=== PATIENT | female | born 1970 | race Caucasian/White ===

== ENCOUNTER 2016-02-26 09:51 | Emergency (ER) | payer MEDICARE ==
[2015-06-03 02:26] VITALS: BMI 25.1
[~2016-02-26 09:51] MED LIST: AMBIEN10 MG PO; NEURONTIN600 MG PO; PRILOSEC20 MG PO; ROBAXIN-750750 MG PO; XANAX XR 1 MG TA1 MG PO; ZOFRAN4 MG PO
[2016-02-26 11:12] LABS: BASOPHILS 0.2 % (0.0-2.0); HEMATOCRIT 41.7 % (36.0-48.0); IMMATURE GRANULOCYTES 0.8 % (0-5); LYMPHOCYTES 16.1 % (15-50); MCH 25.9 pg (26.0-34.0); MCHC 31.2 g/dL (31.0-37.0); MCV 83.2 fL (80.0-100.0); MONOCYTES 3.2 % (2-11); NEUTROPHILS 78.7 % (40-80); PLATELET COUNT 232 10x3/uL (130-400); RBC 5.01 10x6/uL (4.00-5.40); RDW 17.3 % (11.5-14.5); WBC 15.6 10x3/uL (4.8-10.8)
[2016-02-26 11:27] LABS: ALBUMIN 3.9 g/dL (3.4-5.0); ALKALINE PHOSPHATASE 126 U/L (46-116); ALT (SGPT) 21 U/L (10-68); BILIRUBIN - TOTAL 0.33 mg/dL (0.2-1.3); CALC OSMOLALITY 272 mosm/kg (275-300); CALCIUM 9.3 mg/dL (8.5-10.1); CARBON DIOXIDE 23.1 mmol/L (21.0-32.0); CHLORIDE - SERUM 102 mmol/L (98-107); CREATININE - SERUM 0.8 mg/dL (0.6-1.3); GLUCOSE 76 mg/dL (74-106); POTASSIUM - SERUM 4.1 mmol/L (3.5-5.1); PROTEIN - SERUM 7.7 g/dL (6.4-8.2); SODIUM 138 mmol/L (136-145); UREA NITROGEN 8 mg/dL (7-18); eGFR NON AFRICAN AMERICAN 82 mL/min (90-120)
[2016-02-26 11:31] LABS: TROPONIN-I < 0.017 ng/mL (0.000-0.060)
== END 2016-02-26 13:50 | disposition home or self-care (01) ==
LOC: D.ER 09:51
PROVIDERS: Emergency Medicine
DX: J20.9 Acute bronchitis, unspecified (principal); F41.9 Anxiety disorder, unspecified; F17.200 Nicotine dependence, unspecified, uncomplicated

== ENCOUNTER → 2016-04-19 17:00 | Outpatient (CLI) | payer MEDICARE ==
[2015-06-03 02:26] VITALS: BMI 25.1
== END | disposition home or self-care (01) ==
LOC: D.MAMMO 14:30
DX: Z12.31 Encounter for screening mammogram for malignant neoplasm of breast (principal)

== ENCOUNTER → 2016-06-08 16:50 | Outpatient (CLI) | payer MEDICARE ==
[2015-06-03 02:26] VITALS: BMI 25.1
== END | disposition home or self-care (01) ==
LOC: D.MAMMO 09:30
DX: R92.8 Other abnormal and inconclusive findings on diagnostic imaging of breast (principal)

== ENCOUNTER 2016-11-20 08:59 | Emergency (ER) | payer MEDICARE ==
[2015-06-03 02:26] VITALS: BMI 25.1
== END 2016-11-20 09:58 | disposition home or self-care (01) ==
LOC: D.ER 08:59
DX: M54.16 Radiculopathy, lumbar region (principal); F17.200 Nicotine dependence, unspecified, uncomplicated

== ENCOUNTER 2016-12-07 09:37 | Emergency (ER) | payer MEDICARE ==
[2015-06-03 02:26] VITALS: BMI 25.1
== END 2016-12-07 11:18 | disposition home or self-care (01) ==
LOC: D.ER 09:37
DX: M54.16 Radiculopathy, lumbar region (principal); F17.200 Nicotine dependence, unspecified, uncomplicated

== ENCOUNTER 2016-12-13 13:29 | Inpatient (IN) | payer MEDICARE ==
[2016-12-13 13:54] LABS: BASOPHILS 0.3 % (0-2); EOSINOPHILS 2.9 % (0-7); HEMATOCRIT 43.1 % (36.0-48.0); HEMOGLOBIN 14.1 g/dL (12-16); IMMATURE GRANULOCYTES 0.2 % (0-5); LYMPHOCYTES 28.1 % (15-50); MCH 29.2 pg (26.0-34.0); MCHC 32.7 g/dL (31.0-37.0); MCV 89.2 fL (80.0-100.0); MEAN PLATELET VOLUME 10.4 fL (7.4-10.4); NEUTROPHILS 61.5 % (40-80); PLATELET COUNT 193 10x3/uL (130-400); RBC 4.83 10x6/uL (4.00-5.40); RDW 18.1 % (11.5-14.5)
[2016-12-13 14:07] LABS: ALBUMIN 3.6 g/dL (3.4-5.0); ALKALINE PHOSPHATASE 123 U/L (46-116); ALT (SGPT) 21 U/L (10-68); BILIRUBIN - TOTAL 0.26 mg/dL (0.2-1.3); CALC OSMOLALITY 280 mosm/kg (275-300); CALCIUM 9.1 mg/dL (8.5-10.1); CARBON DIOXIDE 26.8 mmol/L (21.0-32.0); CHLORIDE - SERUM 104 mmol/L (98-107); CREATININE - SERUM 0.6 mg/dL (0.6-1.3); GLUCOSE 81 mg/dL (74-106); PROTEIN - SERUM 7.2 g/dL (6.4-8.2); SODIUM 141 mmol/L (136-145); UREA NITROGEN 15 mg/dL (7-18); eGFR NON AFRICAN AMERICAN > 90 mL/min (90-120)
--- NOTE | 2016-12-13 21:23 | NUR ---
CONSULTED DR WELLER REGARDING DECREASED BLOOD PRESSURE. VERBAL ORDERS GIVEN TO GIVE HESPAN IN PACU AND TO FINISH HESPAN ON THE FLOOR AFTER 200ML. WILL CONTINUE TO MONITOR.
[2016-12-13 21:39] LABS: HEMATOCRIT 36.6 % (36.0-48.0); HEMOGLOBIN 11.7 g/dL (12-16)
[2016-12-13 21:48] VITALS: BP 125/73
--- NOTE | 2016-12-13 21:54 | NUR ---
CONSULTED DR WELLER ABOUT HYPOTENSION. DR WELLER ORDERED STAT HEMOGLOBIN AND HEMATOCRIT.
[2016-12-13 23:37] VITALS: BP 125/73; BMI 25.9
[2016-12-14 04:00] VITALS: BP 92/44
--- NOTE | 2016-12-14 05:40 | OP ---
PATIENT NAME: HANSEL MEJIA MEDICAL RECORD: [id number] :68 LOCATION:[id number] ADMISSION DATE:12/13/16 SURGEON: CAN SORIANO DO DATE OF OPERATION: 12/13/2016 PROCEDURE PERFORMED: Left femur open reduction with intramedullary nailing. PREOPERATIVE DIAGNOSIS: Closed left subtrochanteric femur fracture. POSTOPERATIVE DIAGNOSIS: Closed left subtrochanteric femur fracture. INDICATIONS: Ms. Mejia is a 46-year-old female who tripped and fell down stairs earlier today while taking her dog out to go to the bathroom and sustained a left subtrochanteric femur fracture. She was brought by ambulance to the hospital and the patient was informed of recommended treatment and she was verbally consented for the procedure and then signed the consent in the Emergency Room. SURGEON: Can Soriano DO. DESCRIPTION OF PROCEDURE: She was given a block in the preoperatively area by anesthesia. Once this was done, she was taken to the operative suite. She was intubated and given general anesthetic on her bed. Once this was done, she was moved over to the fracture table and the patient was placed in the fracture table. All bony prominences were well padded. The right leg was placed in a well leg christiansen. The left leg was placed in the traction. A timeout was then performed and everyone is in agreeance to correct side, site and patient. Once this was done, the left femur was prepped and draped in sterile fashion. After that was done, an incision was made over the lateral thigh and careful dissection was made down to the IT band. The IT band was incised and the fracture was encountered. Hohmanns were then placed around the femur. Reduction clamps were made to get the best reduction possible. Once this was done, attention was drawn to the starting point of the femur. An incision was made just superior to the greater trochanteric region on the lateral thigh and careful dissection was made down through the IT band to the greater trochanter. Once correct placement of the starting pin was made, the opening reamer was used to open the femoral canal. After this was done and the guidewire was passed down the femur and the measurement was made to be 380-mm nail. Reaming then commenced starting at 9 up to a 12.5 and had a lot of chatter at 12.5 and once this was done, the 11 nail was [address] into place and malleted down to the several lag screw holes lined up correctly. We then got an AP and the nail was down sufficient. Once this was done, the lag screw pin was placed through the jig and confirmed in lateral view in good position. Once we got her in position, we then measured to be 100-mm screw, 10.5 mm drill was used to drill over the guidepin then the lag screw was put into place on hand. Once the lag screw was put into place, the anti-rotation screw was placed through the guide and 80-mm anti-rotation screw was put above the lag screw in the femoral neck into the femoral head. After this was done, attention was then drawn to the distal femur for the locking screws. Perfect circles were made and careful dissection was made down from the lateral side to the femur and then the drill was used to drill across the femur through the distal holes. Both distal holes were used to put in locking screws. The most distal one was a 42 and the more proximal one was a 40. This was all done under fluoro and once this was done, the reduction clamps were removed off the femur and x-rays were taken and seen the nails in good position. The wounds were then copiously irrigated and the IT band was OPERATIVE REPORT [id number] HANSEL MEJIA closed in the larger incision where an open reduction was made as well as at the proximal incision where the nail was inserted and then #1 sutures were used for that and 0 suture and #1 suture were then used to close down the fatty layer after Aster was put into place and then 2-0 Vicryl in inverted interrupted fashion were used to close the skin in all the sites and then a ZipLine was placed over each of the incision and used to close the skin. Once this was done, the patient was dressed with Adaptic, 4 x 4, ABDs and Medipore tape. She was awakened and taken to recovery in stable condition. Blood loss was approximately 500 mL. COMPLICATIONS: None. TRANSINT:[id number] Voice Confirmation ID: [id number] DOCUMENT ID: [id number] CAN SORIANO DO at 0540 CC: [id number] DICTATION DATE: 12/13/162037 DIE TESTER: 12/13/162113 ADM IN [facility] [address] [id number]
[2016-12-14 05:48] LABS: HEMATOCRIT 32.5 % (36.0-48.0); HEMOGLOBIN 10.4 g/dL (12-16); MCH 28.9 pg (26.0-34.0); MCV 90.3 fL (80.0-100.0); MEAN PLATELET VOLUME 11.1 fL (7.4-10.4); RDW 17.8 % (11.5-14.5); WBC 9.7 10x3/uL (4.8-10.8)
[2016-12-14 05:49] LABS: RBC 3.6 10x6/uL (4.00-5.40)
--- NOTE | 2016-12-14 07:30 | NUR ---
RECEIVED PT DURING WALKING ROUNDS. PT RESTING IN BED WITH COMPLAINTS OF PAIN OF A 9 ON A SCALE OF 1-10. PAIN MEDICATION TO BE GIVEN PER ORDER. ASSESSMENT DONE PER FLOWSHEET. BED IN LOW POSITION AND CALL LIGHT WITHIN REACH. WILL CONTINUE TO MONITOR.
[2016-12-14 08:33] VITALS: BP 110/62
--- NOTE | 2016-12-14 09:40 | NUR ---
Patient Name: HANSEL JAMES Admission Status: ER Accout number: [id number] Admission Date: 12-13-2016 : 1970 Admission Diagnosis: Attending: BARB SORIANO Current LOS: 1 Anticipated DC Date: Planned Disposition: Home Primary Insurance: [employer] PPO M[employer] Discharge Planning Comments: CM MET WITH PATIENT TO ASSESS DISCHARGE PLANNING NEEDS. PATIENT CURRENTLY LIVES HOME ALONE WHERE SHE IS INDEPENDENT. SHE STATED SHE HAS 4 STEPS TO HER HOUSE WHERE SHE FELL AND BROKE HER LEG. SHE STATED THAT SHE DOES NOT HAVE ANY MEDICAL EQUIPMENT AT HOME, BUT WILL NEED A WALKER AND/OR CRUTCHES. SHE WAS TEARFUL WHEN I WAS IN THE ROOM, AND ASKED ME TO COMEBACK TO TALK ABOUT WHO WAS TAKING HER HOME AND IF THERE WAS ANYONE TO STAY WITH HER. SHE SAID THAT HER MOM LIVES OUT OF TOWN AND IS IN HER 70'S. CM WILL CONTINUE TO ASSIST WITH DISCHARGE PLANNING NEEDS. PCP: [facility] UGO NORIEGA ( [facility] [phone] Special Warfare Combatant Crewman: Tasia Terrell * Is the patient Alert and Oriented? Yes 0 * How many steps to enter\exit or inside your home? 4 0 * PCP [facility] 0 * Pharmacy [facility] 0 * Preadmission Environment Home Alone 0 * ADLs Independent 0 * Equipment None 0 * List name and contact numbers for known caregivers / representatives who currently or will assist patient after discharge: UGO NORIEGA (MOM) [phone] 0 * Community resources currently utilized None 0 * Additional services required to return to the preadmission environment? Yes 0 * Can the patient safely return to the preadmission environment? Yes 0 * Has this patient been hospitalized within the prior 30 days at any hospital? No 0 Grand Total: 0
[2016-12-14 12:27] VITALS: BP 103/67
--- NOTE | 2016-12-14 16:30 | NUR ---
20 GAUGE IV SITED TO RIGHT WRIST X1 ATTEMPT.
[2016-12-14 17:23] VITALS: BP 104/63
[2016-12-14 20:00] VITALS: BP 115/63
[2016-12-15] VITALS: BP 101/60
--- NOTE | 2016-12-15 02:00 | NUR ---
PT IN BED WITH NO DISTRESS. RESPIRATIONS EVEN AND UNLABORED. SIDE RAILS X 2. BED IS LOW. CALL LIGHT IN REACH.
[2016-12-15 04:00] VITALS: BP 101/62
[2016-12-15 05:22] LABS: HEMATOCRIT 29.7 % (36.0-48.0); HEMOGLOBIN 9.6 g/dL (12-16); MCH 29.2 pg (26.0-34.0); MCHC 32.3 g/dL (31.0-37.0); MCV 90.3 fL (80.0-100.0); RBC 3.29 10x6/uL (4.00-5.40); RDW 17.8 % (11.5-14.5); WBC 8.8 10x3/uL (4.8-10.8)
--- NOTE | 2016-12-15 07:45 | NUR ---
AWAKE AND ALERT. ORIENTED X3. C/O SOME PAIN THIS AM. TO SOON FOR PRN. WILL MONITOR. LUNGS ARE CLEAR BILATERALLY, NO COUGH NOTED. SKIN IS INTACT WITHOUT REDNESS EXCEPT INCISION TO RIGHT HIP WHICH HAS A DRY INTACT DRESSING IN PLACE. IV TO LEFT WRIST PATENT WITHOUT REDNESS AT INSERTION SITE. DENIES NEEDS.
[2016-12-15 08:09] VITALS: BP 94/51
--- NOTE | 2016-12-15 10:05 | NUR ---
REQUESTED AND GIVEN 10MG OXY IR PO FOR C/O RIGHT HIP PAIN LEVEL 8. WILL MONITOR.
--- NOTE | 2016-12-15 12:22 | NUR ---
UP TO BSC PER SELF. VOIDED CLEAR YELLOW URINE WITHOUT DIFFICULTY. SKIN CARE PER SELF. REPORTS GOOD RELIEF WITH USE OF OXY IR. MOTHER AT BEDSIDE.
[2016-12-15 12:28] VITALS: BP 99/54
--- NOTE | 2016-12-15 14:15 | NUR ---
REQUESTED AND GIVEN 10MG OXY IR PO WITH 1MG XANAX FOR C/O PAIN AND ANXIETY. WILL MONITOR. EXPLAINED XANAX IS TID PRN AND THIS WAS SECOND DOSE.
[2016-12-15 15:47] VITALS: BP 91/65
--- NOTE | 2016-12-15 18:05 | NUR ---
ATE MOST OF SUPPER. DENIES NEEDS. NO CHANGES NOTED.
[2016-12-15 20:00] VITALS: BP 97/63
--- NOTE | 2016-12-15 20:03 | NUR ---
PATIENT RESTING IN BED AND REQUESTED PAIN MEDS WHEN DUE. BROUGHT PT DRINK PER HER REQUEST. PATIENT DENIES OTHER NEEDS AT THIS TIME. BED IN LOWEST POSITION AND CALL LIGHT WITHIN REACH. ENCOURAGED THE PATIENT TO CALL IF SHE HAS NEEDS.
[2016-12-16] VITALS: BP 94/48
--- NOTE | 2016-12-16 02:16 | NUR ---
SLEEPING, NO DISTRESS NOTED, BREATHING EVEN UNLABORED, CALL LIGHT IN REACH
--- NOTE | 2016-12-16 07:49 | NUR ---
AWAKE AND ALERT. ORIENTED X3. REQUESTED AND GIVEN 10MG OXY IR PO FOR C/O RIGHT LEG PAIN. ALSO REQUESTED AND GIVEN ZOFRAN FOR C/O NAUSEA AND XANAX 1MG FOR C/O ANXIETY. WILL MONITOR. LUNGS ARE CLEAR BILATERALLY, NO COUGH NOTED. SKIN IS INTACT WITHOUT REDNESS EXCEPT INCISION TO RIGHT HIP WHICH HAS A DRY INTACT DRESSING IN PLACE. SL TO RIGHT HAND IS PATETN WITHOUT REDNESS AT INSERTION SITE. NO OTHER NEEDS NOTED.
[2016-12-16 08:38] VITALS: BP 91/53
--- NOTE | 2016-12-16 08:56 | NUR ---
PATIENT STATED THAT SHE WILL NEED A WALKER AND A BEDSIDE COMMODE. ORDER SENT TO [facility] AND THEY WILL DELIVER TO HOSPITAL. PATIENT STATED THAT HER MOM WILL BE THE ONE TO TAKE HER HOME AND WILL BE ABLE TO STAY WITH HER. CM WILL SET UP HOME HELATH AND PT AT HOME FOR PATIENT. PATIENT PICKED [employer] SIGNED AND PLACED IN CHART. CM WILL CONTINUE TO FOLLOW AND ASSIST WITH DISCHARGE PLANNING NEEDS.
--- NOTE | 2016-12-16 10:00 | NUR ---
WAS UP IN ROOM PER SELF AGAIN. ENCOURAGED NOT TO GET OOB ALONE.
--- NOTE | 2016-12-16 12:20 | NUR ---
REQUESTED AND GIVEN ONE OXYIR PO FOR C/O RIGHT LEG PAIN LEVEL 5. WILL MONITOR.
[2016-12-16 13:01] VITALS: BP 119/70
--- NOTE | 2016-12-16 13:29 | NUR ---
CM CALLED MOM TO VERIFY THAT SHE WOULD BE ABLE TO STAY AND HELP HER DAUGHTER. MOTHER STATES THAT SHE IS IN [place] AND SHE IS 76 YEARS OLD AND WOULD NOT BE ABLE TO HELP HER DAUGHTER. PT STATED THAT SHE DID NOT NEED TO BE LEFT ALONE. PATIENT WOULD LIKE TO BE PLACED IN A SKILLED BED. TILL SHE IS STRONG ENOUGH TO GO HOME AND BE BY HERSELF. PATIENT WOULD LIKE [facility] [facility] [place]. CM CALLED LINDA FOR REFERRAL
--- NOTE | 2016-12-16 14:16 | NUR ---
CONTINUES TO C/O RIGHT LEG PAIN. REQUESTED AND GIVEN ONE MG XANAX PO FOR C/O ANXIETY. WILL MONITOR.
--- NOTE | 2016-12-16 14:40 | NUR ---
CM REASSESSMENT NOTE: SATHISH UP -HAD SPOKE WITH LINDA FROM [facility] AND SHE CAME TO SPEAK WITH PATIENT. REFERRAL HAS BEEN SENT. LINDA STATED IT WILL PROBABLY BE MONDAY BEFORE WE HEAR FROM [facility].
[2016-12-16 16:18] VITALS: BP 123/69
--- NOTE | 2016-12-16 16:24 | NUR ---
UP TO BSC. VOIDED WITHOUT DIFFICULTY. TAMRA CARE PER SELF. REQUESTED AND GIVEN 10MG OXYIR PO FOR C/O RIGHT LEG PAIN LEVEL 8. WILL MONITOR.
--- NOTE | 2016-12-16 18:31 | NUR ---
ATE ALL OF SUPPER. FOUND SL LYING IN BED WITH CATHETER INTACT. REPORTS PAIN IMPROVED AFTER OXY IR. STATED "I WAS ABLE TO TAKE A NAP. DENIES NEEDS. NO CHANGES NOTED.
--- NOTE | 2016-12-16 19:15 | NUR ---
RECEIVED CARE FROM DAY NURSE. PT SITTING UP IN BEDSIDE CHAIR. REPORTS NO NEEDS AT THIS TIME. CALL LIGHT AT SIDE. IV OUT PER DAY NURSE, FOUND LYING ON BEDSIDE TABEL.
[2016-12-16 20:00] VITALS: BP 113/48
[2016-12-17] VITALS: BP 132/72
--- NOTE | 2016-12-17 00:40 | NUR ---
OXI IR GIVEN FOR PAIN. REPORTS NO OTHER NEEDS AT THIS TIME. BED ALARM ARMED. PT THROUGHOUT SHIFT HAS GOTTEN UP MULTIPLE TIMES. RE-ENFORCED NEED TO CALL FOR ASSISSTANCE.
[2016-12-17 05:20] LABS: HEMATOCRIT 29.2 % (36.0-48.0); HEMOGLOBIN 9.4 g/dL (12-16)
[2016-12-17 06:00] VITALS: BP 130/50
--- NOTE | 2016-12-17 08:00 | NUR ---
RECIEVED PT FROM SEWER INSPECTOR NURSE, PT SITTING UP IN BED WITH COMPLAINTS OF PAIN OF A 8 ON A SCALE OF 1-10. MEDICATION TO BE ADMINISTERED PER ORDER. ASSESSMENT DONE PER FLOWSHEET. BED IN LOW POSITION AND CALL LIGHT WITHIN REACH. WILL CONTINUE TO MONITOR.
[2016-12-17 08:42] VITALS: BP 107/68
[2016-12-17 12:52] VITALS: BP 111/53
--- NOTE | 2016-12-17 14:47 | NUR ---
OXY IR AQND ATIVAN PO WITH SCHEDULED MEDS. SITTING IN CHAIR. NO OTHER NEEDS VOICED. CALL LIGHT IN REACH.
[2016-12-17 16:04] VITALS: BP 109/60
--- NOTE | 2016-12-17 17:00 | NUR ---
PT FELL WHILE ATTEMPTING TO TRANSFER FROM BED TO BEDSIDE COMMODE. FALL PRECAUTIONS WERE IN PLACE AT TIME OF ACCIDENT. NO INJURIES SUSTAINED. DR. SORIANO NOTIFIED. VITAL SIGNS FOLLOWS, BP:126/79, HR:107, O2:100, RESP:17. BED IN LOW POSITION AND CALL LIGHT WITHIN REACH. BED ALARM ON. WILL CONTINUE TO MONITOR.
--- NOTE | 2016-12-17 19:15 | NUR ---
RECEIVED CARE FROM DAY NURSE. PT REQUEST TO GO OUTSIDE WITH FRIEND TO SMOKE. PT PLACED IN W/C TO GO OUT WITH FRIEND. NO OTHER NEEDS VOICED AT THIS TIME.
--- NOTE | 2016-12-17 19:17 | NUR ---
OUT OF ROOM WITH LAUNDRY ASSISTANT VIA WC
[2016-12-17 20:00] VITALS: BP 110/60
--- NOTE | 2016-12-17 23:15 | NUR ---
PT UP X5 IN THE PAST 1.5 HOURS TO URINATE. UA COLLECTED TO RULE OUT UTI.
[2016-12-18] VITALS: BP 109/67
[2016-12-18 00:07] LABS: APPEARANCE CLEAR (CLEAR); BILIRUBIN NEGATIVE (NEGATIVE); COLOR YELLOW (YELLOW); GLUCOSE NEGATIVE (NEGATIVE); KETONE NEGATIVE (NEGATIVE); NITRITE NEGATIVE (NEGATIVE); PROTEIN NEGATIVE (NEGATIVE); UROBILINOGEN NORMAL (NORMAL)
--- NOTE | 2016-12-18 03:33 | NUR ---
IN BED WITH BED ALARM ARMED. NO NEEDS VOICED AT THIS TIME. CALL LIGHT AT SIDE.
--- NOTE | 2016-12-18 03:38 | NUR ---
PATIENT RESTING IN BED WITH EYES CLOSED AND NO VISIBLE SIGNS OF DISTRESS. GUEST AT BEDSIDE. BED IN LOWEST POSITION AND CALL LIGHT WITHIN REACH.
[2016-12-18 04:00] VITALS: BP 114/72
--- NOTE | 2016-12-18 07:30 | NUR ---
RECIEVED PT DURING WALKING ROUNDS, PT COMPLAINS OF PAIN OF A 9 ON A SCALE OF 1-10. MEDICATION TO BE GIVEN PER ORDER. ASSESSMENT DONE PER FLOWSHEET. BED IN LOW POSITION AND CALL LIGHT WITHIN REACH. WILL CONTINUE TO MONITOR.
[2016-12-18 09:33] VITALS: BP 115/64
--- NOTE | 2016-12-18 11:50 | NUR ---
DISCUSSED WITH PT ABOUT COMPLIANCE OF CARE AND THE IMPORTANCE OF FOLLOWING PLAN OF CARE. PT STATED SHE UNDERSTOOD. BED IN LOW POSITION AND FALL PRECAUTIONS IN PLACE. WILL CONTINUE TO MONITOR.
--- NOTE | 2016-12-18 19:15 | NUR ---
RECEIVED CARE FROM DAY NURSE. PT IN BED WITH COMPANY AT SIDE. REQUEST PAIN MEDICATION. MED NOT DUE UNTIL 2144. NO OTHER NEEDS VOICED AT THIS TIME. CALL LIGHT AT SIDE.
[2016-12-18 20:00] VITALS: BP 109/65
[2016-12-19] VITALS: BP 104/54
--- NOTE | 2016-12-19 02:31 | NUR ---
PT RESTING QUITLY AT THIS TIME. EYES CLOSED. RESP EVEN AND UNLABORED. PT HAS ATTEMPTED TO GET UP MULTIPLE TIMES THROUGHOUT SHIFT WITHOUT ASSISSTANCE. BED ALARM ARMED. JERRI MAT IN BEDSIDE CHAIR. NO IV.
[2016-12-19 04:00] VITALS: BP 95/85
[2016-12-19] MEDS ORDERED: OXYCODONE HCL5 MG PO (07:57)
[2016-12-19] MEDS ORDERED: ATARAX 25 MG TA25 MG PO (07:57)
[2016-12-19] MEDS ORDERED: ELIQUIS2.5 MG PO (07:57)
[2016-12-19 08:30] VITALS: BP 103/54
--- NOTE | 2016-12-19 08:40 | NUR ---
FOUND UP IN BR PER SELF. HAD GOOD BM THIS AM. SKIN CARE PER SELF. LUNGS ARE CLEAR BILATERALY, NO COUGH NOTED. SKIN IS INTACT WITHOUT REDNESS EXCEPT INCISION TO LEFT HIP WHICH HAS A DRY INTACT DRESSING IN PLACE. BREAKFAST SERVED IN ROOM ATE ALMOST ALL OF MEAL. REQUESTED AND GIVEN 10MG OXY IR PO FOR C/O LEFT HIP PAIN LEVEL 9. WILL MONITOR. REPOSITIONED IN BED. JERRI MAT ON AT THIS TIME.
--- NOTE | 2016-12-19 10:00 | NUR ---
AWAITING INSURANCE APROVAL FOR DISCHARGE
--- NOTE | 2016-12-19 10:30 | NUR ---
ASSISTED WITH BED BATH PER STAFF. LINENS CHANGED. DENIES NEEDS.
--- NOTE | 2016-12-19 11:32 | NUR ---
PER PT, ALREADY RECEIVED FLU VACCINE FOR THIS SEASON. NOT REFLECTED ON ADMISSION HISTORY
--- NOTE | 2016-12-19 12:15 | NUR ---
LUNCH SERVED IN ROOM FEEDS SELF. ATE ALMOST ALL OF MEAL.
--- NOTE | 2016-12-19 13:00 | NUR ---
REQUESTED AND GIVEN 10MG OXY IR PO FOR C/O RIGHT HIP PAIN LEVEL 9. WILL MONITOR.
[2016-12-19 13:25] VITALS: BP 115/74
--- NOTE | 2016-12-19 15:15 | NUR ---
REPORT CALLED TO HARI ALBRIGHT LPN AT [facility]. ALL QUESTIONS ANSWERED.
--- NOTE | 2016-12-19 15:23 | NUR ---
patient discharging to [facility] to a skilled bed, mother notified via their van transportation
--- NOTE | 2016-12-19 16:00 | NUR ---
REQUESTED AND GIVEN 10MG OXY IR PO FOR C/O RIGHT HIP PAIN LEVEL 9. WILL MONITOR.
--- NOTE | 2016-12-19 16:30 | NUR ---
DISCHARGED TO [place] [facility] VIA THEIR TRANSPORT. PATIENT AWARE OF SAME. ALL QUESTIONS ANSWERED.
== END 2016-12-19 16:30 | DRG 482 ==
LOC: D.ER 13:29 → D.MS 14:33
PROVIDERS: Anesthesiology; Emergency Medicine; ADMIT Orthopaedic Surgery
PROC: 0QS706Z Reposition Left Upper Femur with Intramedullary Internal Fixation Device, Open Approach (ICD-10-PCS; principal; 2016-12-13 17:00)
DX: S72.22XA Displaced subtrochanteric fracture of left femur, initial encounter for closed fracture (principal); W10.9XXA Fall (on) (from) unspecified stairs and steps, initial encounter; F17.200 Nicotine dependence, unspecified, uncomplicated

== ENCOUNTER 2017-10-31 10:40 | Emergency (ER) | payer MEDICARE ==
[~2017-10-31] VITALS: Ht 175.3 cm; Wt 63.6 kg
[~2017-10-31 10:40] MED LIST changes: +ATARAX 25 MG TA25 MG PO; +ELIQUIS2.5 MG PO; +OXYCODONE HCL5 MG PO
[2017-10-31 10:42] VITALS: Ht 175.3 cm; Wt 63.6 kg
[2017-10-31 12:41] LABS: BASOPHILS 0.4 % (0-2); EOSINOPHILS 3.3 % (0-7); HEMATOCRIT 35.3 % (36.0-48.0); HEMOGLOBIN 11.4 g/dL (12-16); IMMATURE GRANULOCYTES 0.3 % (0-5); LYMPHOCYTES 17.2 % (15-50); MCH 26.1 pg (26.0-34.0); MCHC 32.3 g/dL (31.0-37.0); MCV 80.8 fL (80.0-100.0); MEAN PLATELET VOLUME 9.6 fL (7.4-10.4); MONOCYTES 6.7 % (2-11); NEUTROPHILS 72.1 % (40-80); PLATELET COUNT 119 10x3/uL (130-400); RBC 4.37 10x6/uL (4.00-5.40); RDW 18.2 % (11.5-14.5); WBC 6.7 10x3/uL (4.8-10.8)
[2017-10-31 13:00] LABS: ALBUMIN 3.2 g/dL (3.4-5.0); ALKALINE PHOSPHATASE 131 U/L (46-116); ALT (SGPT) 17 U/L (10-68); BILIRUBIN - TOTAL 0.15 mg/dL (0.2-1.3); CALC OSMOLALITY 274 mosm/kg (275-300); CALCIUM 8.5 mg/dL (8.5-10.1); CARBON DIOXIDE 24.4 mmol/L (21.0-32.0); CHLORIDE - SERUM 108 mmol/L (98-107); CREATININE - SERUM 0.6 mg/dL (0.6-1.3); GLUCOSE 88 mg/dL (74-106); POTASSIUM - SERUM 4.6 mmol/L (3.5-5.1); PROTEIN - SERUM 6.6 g/dL (6.4-8.2); SODIUM 139 mmol/L (136-145); UREA NITROGEN 6 mg/dL (7-18); eGFR NON AFRICAN AMERICAN > 90 mL/min (90-120)
[2017-10-31] MEDS ORDERED: BACLOFEN20 M1 PO (13:51)
[2017-10-31] MEDS ORDERED: MEDROL DOSE PACK4 MG PO (13:51)
[2017-10-31] MEDS ORDERED: PROAIR HFA8.5 GM INH (13:51)
[2017-10-31] MEDS ORDERED: TALWIN NX1 TAB PO (14:01)
[2017-10-31 14:16] VITALS: BP 121/88
== END 2017-10-31 14:14 | disposition home or self-care (01) ==
LOC: D.ER 10:40
PROVIDERS: Family Medicine
DX: R05 Cough (principal); R07.81 Pleurodynia; M54.9 Dorsalgia, unspecified; F17.200 Nicotine dependence, unspecified, uncomplicated

== ENCOUNTER 2017-11-25 11:54 | Emergency (ER) | payer MEDICARE ==
[~2017-11-25] VITALS: Ht 175.3 cm; Wt 65.9 kg
[~2017-11-25 11:54] MED LIST changes: +BACLOFEN20 M1 PO; +MEDROL DOSE PACK4 MG PO; +PROAIR HFA8.5 GM INH; +TALWIN NX1 TAB PO
[2017-11-25 12:03] VITALS: Ht 175.3 cm; Wt 65.9 kg
[2017-11-25] MEDS ORDERED: TORADOL10 MG PO (14:35)
[2017-11-25 16:00] VITALS: BP 128/71
== END 2017-11-25 16:02 | disposition home or self-care (01) ==
LOC: D.ER 11:54
DX: S39.012A Strain of muscle, fascia and tendon of lower back, initial encounter (principal); X58.XXXA Exposure to other specified factors, initial encounter; Y93.89 Activity, other specified; Y92.019 Unspecified place in single-family (private) house as the place of occurrence of the external cause; M54.2 Cervicalgia; F17.200 Nicotine dependence, unspecified, uncomplicated

== ENCOUNTER 2018-04-16 16:47 | Emergency (ER) | payer OTHER, MEDICAID ==
[~2018-04-16] VITALS: Ht 175.3 cm; Wt 63.6 kg
[~2018-04-16 16:47] MED LIST changes: +TORADOL10 MG PO
[2018-04-16 16:58] VITALS: Ht 175.3 cm; Wt 63.6 kg
[2018-04-16] MEDS ORDERED: PHENERGAN DM SYR5 ML PO (19:59)
[2018-04-16] MEDS ORDERED: ZITHROMAX250 MG PO (19:59)
[2018-04-16 20:30] VITALS: BP 132/85
== END 2018-04-16 20:30 | disposition home or self-care (01) ==
LOC: D.ER 16:47
DX: J18.9 Pneumonia, unspecified organism (principal); S39.012A Strain of muscle, fascia and tendon of lower back, initial encounter; X58.XXXA Exposure to other specified factors, initial encounter; Y93.89 Activity, other specified; Y92.019 Unspecified place in single-family (private) house as the place of occurrence of the external cause; R05 Cough